=== PATIENT | female | born 1995 | race Hispanic/Latino ===

== ENCOUNTER 2018-10-19 09:45 | Outpatient (CLI) | payer MEDICAID | END 2018-10-19 12:45 | disposition home or self-care (01) | LOC: LAB 09:45 → TRG 11:40 → LAB 12:45 | PROVIDERS: ATTEND Obstetrics & Gynecology | DX: O26.893 Other specified pregnancy related conditions, third trimester (principal); Z67.41 Type O blood, Rh negative; Z3A.31 31 weeks gestation of pregnancy | CPT/HCPCS: 86850; 86900; 86901; 96372; J2790 ==

== ENCOUNTER 2018-12-03 08:09 | Inpatient (IN) | payer MEDICAID ==
[2018-12-03] MEDS ORDERED: LACTATED RINGERS 1,000 ML ONE (09:43)
[2018-12-03] MEDS ORDERED: ZOFRAN IV PRN ×2 (10:00→19:42)
[2018-12-03] MEDS ORDERED: BRETHINE IVP PRN (10:00)
[2018-12-03] MEDS ORDERED: MINERAL OIL PO PRN (10:00)
[2018-12-03] MEDS ORDERED: PITOCin/NS 30 UNIT/500ML 30 UNITS/500 ML BAG IV SCH ×2 (10:00)
[2018-12-03] MEDS ORDERED: LACTATED RINGERS 1,000 ML IV SCH (10:00)
[2018-12-03] MEDS ORDERED: STADOL IV PRN (10:00)
[2018-12-03] MEDS ORDERED: XYLOCAINE 2% INFILTRATI NR (10:00)
[2018-12-03] MEDS ORDERED: BRETHINE SUB-Q PRN (10:00)
[2018-12-03] MEDS ORDERED: SUBLIMAZE IV PRN (10:00)
[2018-12-03] MEDS ORDERED: AMPICILLIN/NS 2 GM/100 ML 2 GM/100 ML BAG IV ONE (11:00)
--- NOTE | 2018-12-03 11:29 | History and Physical Report ---
History of Present Illness Date of examination: 12/03/18 Date of admission: 12/03/18 08:42 Chief complaint: My water broke History of present illness: 23yo Caucasion Fe , Calvin 12/21/15, 37 weeks 4 days presents with SROM 12/03/18 @ 05:45. Pt intiated early care with [facility]. records available and reviewed. Consistent care with no risk factors. 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 denies: smoking, alcohol abuse, prescription drug abuse, IV drug use - Obstetrical History Expected Date of Delivery: 12/20/18 Actual Gestation: 37 Week(s) 4 Day(s) : 1 Para: 0 Hx # Term Pregnancies: 0 Number of Pregnancies: 0 Spontaneous Abortions: 0 Induced : 0 Number of Living Children: 0 Medications and Allergies Allergies Allergy/AdvReac Type Severity Reaction Status Date / Time No Known Allergies Allergy Verified 12/03/18 09:44 Home Medications Medication Instructions Recorded Confirmed Last Taken Type Pnv,Calcium 72/Iron/Folic Acid 1 tab PO QDAY 12/03/18 12/03/18 1 Day Ago History [Pnv Plus Multivit Tab] ~12/02/18 Active Meds: Active Medications Butorphanol Tartrate (Stadol) 2 mg IV Q2H PRN PRN Reason: Pain , Severe (7-10) Ephedrine Sulfate (Ephedrine Sulfate) 10 mg IV Q2M PRN PRN Reason: Hypotension Fentanyl (Sublimaze) 100 mcg IV Q2H PRN PRN Reason: Labor Pain Oxytocin/Sodium Chloride (Pitocin/Ns 20 Unit/1000ml Drip) 20 units in 1,000 mls @ 125 mls/hr IV DIRECT DESTINY Oxytocin/Sodium Chloride (Pitocin/Ns 30 Unit/500ml) 30 units in 500 mls @ 1 mls/hr IV TITR DESTINY; Protocol Oxytocin/Sodium Chloride (Pitocin/Ns 30 Unit/500ml) 30 units in 500 mls @ 4 mls/hr IV TITR DESTINY; Protocol Last Titration: 12/03/18 11:21 Dose: 8 mls/hr, 8 mls/hr Documented by: Lactated Ringer's (Lactated Ringers) 1,000 mls @ 125 mls/hr IV DIRECT DESTINY Last Admin: 12/03/18 10:22 Dose: 125 mls/hr Documented by: Ampicillin Sodium (Ampicillin/Ns 2 Gm/100 Ml) 2 gm in 100 mls @ 100 mls/hr IV ONCE ONE; Protocol Stop: 12/03/18 11:59 Last Admin: 12/03/18 10:22 Dose: 100 mls/hr Documented by: Ampicillin Sodium (Ampicillin/Ns 1 Gm/50 Ml) 1 gm in 50 mls @ 100 mls/hr IV Q4H DESTINY; Protocol Lidocaine (Xylocaine 2%) 20 ml INFILTRATI ONCE NR Stop: 12/04/18 09:59 Mineral Oil (Mineral Oil) 30 ml PO QHS PRN PRN Reason: Constipation Ondansetron HCl (Zofran) 4 mg IV Q8H PRN PRN Reason: Nausea And Vomiting Terbutaline Sulfate (Brethine) 0.25 mg SUB-Q ONCE PRN PRN Reason: Hyperstimulation/Hypertonicity Terbutaline Sulfate (Brethine) 0.25 mg IVP ONCE PRN PRN Reason: Hyperstimulation/Hypertonicity Review of Systems Eyes: normal appearance Cardiovascular: no chest pain, no shortness of breath Respiratory: no shortness of breath Breasts: normal Gastrointestinal: no nausea, no vomiting, no diarrhea Genitourinary: leakage of fluid (lg amt clear fluid), contractions, no genital sores Integumentary: no rash, no sores, no lesions - Vital Signs Vital signs: Vital Signs Pulse BP 68 127/86 12/03/18 09:15 12/03/18 09:15 Temp Pulse Resp BP Pulse Ox 97.6 F 70 127/74 100 12/03/18 09:38 12/03/18 11:17 12/03/18 11:16 12/03/18 11:17 - Physical Exam Breasts: Positive: normal Cardiovascular: Regular rate, Normal S1, Normal S2, No murmurs Lungs: Positive: Clear to auscultation, Normal air movement Abdomen: Positive: normal appearance, soft, normal bowel sounds. Negative: distention Genitourinary (Female): Positive: normal external genitalia, normal perenium Vulva: both: normal Vagina: Positive: normal moisture (clear fluid noted with exam) Uterus: Positive: enlarged (gravid; S=D) Anus/Rectum: Positive: normal perianal skin Extremities: Positive: normal Deep Tendon Reflex Grade: Normal +2 - Obstetrical FHR: auscultation normal, category 1 Uterine Contraction Monitor Mode: External Cervical Dilatation: 4 (Per admitting RN) Uterine Contraction Pattern: Irregular Uterine Tone Measurement Phase: Resting Uterine Contraction Intensity: Mild Results All other labs normal. Assessment and Plan A: Term IUP at 37w4d GBS unknown AROM 12/03 @ 0545 clear fluid Category 1 tracing Irregular contractions P: Admit; Routine labor orders GBS prophylaxis Pitocin Augmentation May have IV pain med/epidural PRN Anticipate
[2018-12-03 11:54] LABS: Basophils % (Auto) 0.3 % (0.0-1.8); Eosinophils # (Auto) 0.1 K/mm3 (0.0-0.4); Eosinophils % (Auto) 0.5 % (0.0-4.3); Hematocrit 39.4 % (30.3-42.9); Hemoglobin 13.4 gm/dl (10.1-14.3); Lymphocytes # (Auto) 2.7 K/mm3 (1.2-5.4); Lymphocytes % (Auto) 21.5 % (13.4-35.0); Mean Corpuscular HGB Conc 34 % (30-34); Mean Corpuscular Volume 93 fl (79-97); Monocytes # (Auto) 1.1 K/mm3 (0.0-0.8); Monocytes % (Auto) 9.2 % (0.0-7.3); Platelet Count 255 K/mm3 (140-440); Red Blood Count 4.24 M/mm3 (3.65-5.03); Red Cell Distribution Width 13.1 % (13.2-15.2)
[2018-12-03] MEDS ORDERED: AMPICILLIN/NS 1 GM/50 ML 1 GM/50 ML BAG IV SCH (15:00)
[2018-12-03] MEDS: PITOCin/NS 20 UNIT/1000ML DRIP 20 UNITS/1,000 ML BAG IV SCH ×2 (17:15→19:21)
--- NOTE | 2018-12-03 19:41 | Procedure Note ---
OB Delivery Note - Delivery Date of Delivery: 12/03/18 (16:58) Surgeon: ALTAGRACIA GOODEN (GALE) Estimated blood loss: 200cc - Vaginal Delivery presentation: vertex Delivery position: OA Intrapartum events: none Delivery induction: none Delivery augmentation: pitocin Delivery monitor: external FHT, external uterine Route of delivery: (16:58) Delivery placenta: spontaneous (17:02) Delivery cord: 3 umbilical vessels Episiotomy: none Delivery laceration: 1st degree (Small; left unrepaired) Anesthesia: none Delivery comments: viable female infant BARNEY position at 16:58. After delivery of head and shoulders, pt reached down and pulled her infant to her abdomen. Strong lusty cry. Delayed cord clamping, then cut by her mother. Cord blood collected per protocol. Spontaneous riggs delivery of intact placenta at 17:02. 3VC. Discarded. FF@U-2. small first degree perineal laceration left unrepaired. Approximated well. Good Hemostasis. EBL 200cc. and mother left in stable condition. - Infant A at 1 minute: 8 at 5 minutes: 9 Gender: Female (7lbs 12oz, 3513 grams, 19")
[2018-12-03] MEDS ORDERED: PHENERGAN PO PRN (19:42)
[2018-12-03] MEDS ORDERED: NORCO 5/325 PO PRN (19:42)
[2018-12-03] MEDS ORDERED: TYLENOL PO PRN (19:42)
[2018-12-03] MEDS ORDERED: TUCKS PAD TP PRN (19:42)
[2018-12-03] MEDS ORDERED: BENADRYL PO PRN (19:42)
[2018-12-03] MEDS ORDERED: DULCOLAX PR PRN (19:42)
[2018-12-03] MEDS ORDERED: MILK OF MAGNESIA PO PRN (19:42)
[2018-12-03] MEDS ORDERED: LANSINOH TP PRN (19:42)
[2018-12-03] MEDS ORDERED: SODIUM CHLORIDE FLUSH SYRINGE 10 ML IV SCH (20:00)
[2018-12-03] MEDS: IBUPROFEN PO SCH (23:51)
[2018-12-04] MEDS ORDERED: BOOSTRIX IM ONE (06:00)
[2018-12-04] MEDS: IBUPROFEN PO SCH ×3 (06:28→18:24)
[2018-12-04 07:37] LABS: Hematocrit 33.3 % (30.3-42.9); Hemoglobin 11.3 gm/dl (10.1-14.3)
--- NOTE | 2018-12-04 11:31 | Progress Note ---
Assessment and Plan A: PPD#1 s/p Stable P: Continue PP orders Anticipate discharge home in am Subjective - Subjective Date of service: 12/04/18 Principal diagnosis: PPD#1 s/p Interval history: 23yo Caucasion Fe , Calvin 12/21/15, 37 weeks 4 days presents with SROM 12/03/18 @ 05:45. Pt intiated early care with [facility]. records available and reviewed. Consistent care with no risk factors. Patient reports: appetite normal, voiding normally, pain well controlled, flatus, ambulating normally, no bowel movement : doing well, nursing well Objective - Vital Signs Latest vital signs: Vital Signs Temp Pulse Resp BP BP Pulse Ox 12/04/18 07:37 97.7 F 60 18 103/52 99 12/04/18 06:28 18 12/04/18 05:02 98.1 F 58 L 18 101/61 12/04/18 00:38 57 L 98/53 97 12/04/18 00:35 98.5 F 12/04/18 00:30 98.5 F 53 L 20 98/53 98 12/03/18 23:51 18 12/03/18 21:03 98.0 F 59 L 18 111/52 12/03/18 18:16 75 108/58 12/03/18 17:18 71 107/58 12/03/18 17:16 71 109/59 12/03/18 15:39 82 99 12/03/18 15:34 98 H 99 12/03/18 15:29 103 H 99 12/03/18 15:24 88 98 12/03/18 15:19 94 H 99 12/03/18 15:14 90 98 12/03/18 15:09 97 H 100 12/03/18 15:04 95 H 99 12/03/18 14:59 90 100 12/03/18 14:54 85 99 12/03/18 14:49 91 H 100 12/03/18 14:46 86 126/62 12/03/18 14:44 71 100 12/03/18 14:39 96 H 100 12/03/18 14:35 86 122/73 12/03/18 14:34 95 H 100 12/03/18 14:29 81 100 12/03/18 14:24 84 96 12/03/18 14:19 77 99 12/03/18 14:14 97 H 98 12/03/18 13:48 89 111/60 12/03/18 13:16 73 98/50 99 12/03/18 13:11 90 98 12/03/18 13:02 84 99 12/03/18 12:57 83 97 12/03/18 12:52 72 98 12/03/18 12:48 77 89 12/03/18 12:47 77 100 12/03/18 12:46 74 128/76 12/03/18 12:42 81 97 12/03/18 12:40 77 83 L 12/03/18 12:37 78 85 12/03/18 12:34 89 85 12/03/18 12:32 57 L 99 12/03/18 12:27 66 87 12/03/18 12:22 71 100 12/03/18 12:21 87 92 12/03/18 12:17 78 112/73 93 12/03/18 12:13 83 92 12/03/18 12:12 77 100 12/03/18 12:07 79 99 12/03/18 12:02 77 99 12/03/18 11:57 84 92 12/03/18 11:52 82 99 12/03/18 11:47 82 99 12/03/18 11:46 76 124/73 12/03/18 11:44 70 93 12/03/18 11:42 76 99 12/03/18 11:37 89 94 12/03/18 11:32 74 99 Intake and Output 12/03/18 12/04/18 12/04/18 23:59 07:59 15:59 Intake Total 262.5 600 Output Total 400 Balance 262.5 200 Intake: IV 262.5 PITOCin/NS 20 UNIT/1000ML 262.5 DRIP 20 units In 1,000 ml @ 125 mls/hr IV DIRECT DESTINY Rx#:[id number] PITOCin/NS 30 UNIT/500ML 0 30 units In 500 ml @ 4 mls/hr IV TITR DESTINY Rx#: [id number] Oral 120 Intake, Free Water 480 Output: Urine 400 Void 400 Other: Total, Intake Amount 120 Total, Output Amount 400 # Voids Void 1 Estimated Blood Loss 200 - Exam Breasts: Present: normal, Cardiovascular: Present: Regular rate, Normal S1, Normal S2, No murmurs Lungs: Present: Clear to auscultation, Normal air movement Abdomen: Present: normal appearance, soft, normal bowel sounds. Absent: disten tion Vulva: both: normal Uterus: Present: firm, fundal height below umbilicus (-1) Extremities: Present: normal Deep Tendon Reflex Grade: Normal +2 - Labs Labs: Abnormal lab results 12/03/18 Range/Units 09:00 WBC 12.4 H (4.5-11.0) K/mm3 RDW 13.1 L (13.2-15.2) % York % (Auto) 9.2 H (0.0-7.3) % [place] # 1.1 H (0.0-0.8) K/mm3 Seg Neutrophils # 8.5 H (1.8-7.7) K/mm3
--- NOTE | 2018-12-04 11:33 | Discharge Summary ---
Providers - Providers Date of Admission: 12/03/18 08:42 Date of discharge: 12/05/18 Attending physician: GUY CRUZ Primary care physician: GUY CRUZ Hospitalization Reason for admission: active labor, IUP at term Delivery: Procedure details: See H&P and delivery note Episiotomy: none Laceration: 1st degree (small, well approximated) Other procedures: none complications: none Discharge diagnosis: IUP at term delivered Index baby: male Condition at discharge: Good Disposition: DC-01 TO HOME OR SELFCARE Plan - Provider Discharge Summary Activity: routine, no sex for 6 weeks, no heavy lifting 4 weeks, no strenuous exercise Diet: routine Instructions: routine Additional instructions: [] Smoking cessation referral if applicable(refer to patient education folder for contact #) [] Refer to [facility]'s [facility] Booklet Call your doctor immediately for: * Fever > 100.5 * Heavy vaginal bleeding ( >1 pad per hour) * Severe persistent headache * Shortness of breath * Reddened, hot, painful area to leg or breast * Drainage or odor from incision. * Keep incision clean and dry at all times and follow doctor's instructions regarding bathing/showering - Follow up plan Follow up: GUY CRUZ MD [Primary Care Provider] - 6 Weeks
[2018-12-05] MEDS: IBUPROFEN PO SCH ×2 (02:10→12:00)
[2018-12-05] MEDS ORDERED: BOOSTRIX IM ONE (13:00)
[2018-12-05 16:27] VITALS: BP 111/67
== END 2018-12-05 16:29 | disposition home or self-care (01) | DRG 775 ==
LOC: TRG 08:09 → LD 08:42 → OB 21:11
PROVIDERS: ADMIT Obstetrics & Gynecology; ATTEND Obstetrics & Gynecology
PROC: 10E0XZZ Delivery of Products of Conception, External Approach (ICD-10-PCS; principal; 2018-12-03)
PROC: 10907ZC Drainage of Amniotic Fluid, Therapeutic from Products of Conception, Via Natural or Artificial Opening (ICD-10-PCS; 2018-12-03)
PROC: 3E0234Z Introduction of Serum, Toxoid and Vaccine into Muscle, Percutaneous Approach (ICD-10-PCS; 2018-12-05)
DX: O80 Encounter for full-term uncomplicated delivery (principal); O70.0 First degree perineal laceration during delivery; Z3A.37 37 weeks gestation of pregnancy; Z37.0 Single live birth; Z23 Encounter for immunization
CPT/HCPCS: 36415; 85014; 85018; 85025; 86592; 86706; 86850; 86870; 86900; 86901; 90471; 90715; G0378; J0290; J2590; J7120